=== PATIENT | female | born 1975 | race Two or more races ===

== ENCOUNTER 2024-03-16 13:29 | Emergency (ER) | payer MEDICAID, OTHER ==
[~2024-03-16] VITALS: Ht 157.5 cm; Wt 58.6 kg
[2024-03-16 16:13] LABS: Basophils # (auto) 0.1 10 ^3/uL (0-0.2); Basophils % (auto) 0.8 % (0.0-2.0); Eosinophils # (auto) 0.2 10 ^3/uL (0-0.8); Eosinophils % (auto) 3.2 % (0.0-7.0); Hematocrit 38.4 % (36.0-46.0); Hemoglobin 13.1 g/dL (12.2-16.2); Lymphocytes # (auto) 1.9 10 ^3/uL (0.4-5.4); Lymphocytes % (auto) 29.5 % (10.0-50.0); Mean Corpuscular Hemoglobin 31.3 pg (28.0-32.0); Mean Corpuscular Hgb Conc. 34.2 g/dL (32.0-36.0); Mean Corpuscular Volume 91.5 fL (80.0-100.0); Monocytes # (auto) 0.4 10 ^3/uL (0-1.3); Monocytes % (auto) 5.5 % (0.0-12.0); Platelet Count (auto) 286 10^3/uL (140-450); Red Cell Distribution Width 13.6 % (11.8-14.3); White Blood Cell 6.5 10^3/uL (4.4-10.8)
[2024-03-16 16:18] VITALS: BP 98/61; PULSE 85; RESP 17; TEMP 98.2; O2SAT 95
[2024-03-16 16:27] LABS: Chloride 105 mmol/L (98-107); Sodium 139 mmol/L (136-145)
[2024-03-16 16:28] LABS: Anion Gap 4 (5-15); Carbon Dioxide 30 mmol/L (20-31)
[2024-03-16 16:29] LABS: Calcium 9.9 mg/dL (8.7-10.4)
[2024-03-16 16:33] LABS: BUN/Creatinine Ratio 15.2 (10.0-20.0); Blood Urea Nitrogen 14 mg/dL (9-23); Glucose 98 mg/dL (74-106)
== END 2024-03-16 22:04 | disposition left against medical advice (07) ==
LOC: ER 13:29
DX: R55 Syncope and collapse (principal); R53.1 Weakness
CPT/HCPCS: 36415; 70450; 71046; 80048; 82962; 84484; 85025; 93005

== ENCOUNTER 2025-01-07 09:06 | Outpatient (CLI) | payer MEDICAID ==
[2025-01-07] MEDS ORDERED: IOHEXOL 300 MG/ML 100ML BOTTLE IJ ONE (09:19)
[2025-01-07] MEDS ORDERED: methylPREDNISolone ACETATE 80 MG/ML VL ONE (09:19)
[2025-01-07] MEDS ORDERED: BUPIVACAINE HCL 0.25% P/F 10 ML VIAL ONE (09:19)
[2025-01-07] MEDS ORDERED: LIDOCAINE 2%HCL (LOCAL ANESTH.) INJ 10ml MDV ONE (09:19)
--- NOTE | 2025-01-07 10:16 | DVH ---
PROCEDURE: Joint injection Procedural Personnel Attending physician(s): Bladimir Campos Fellow physician(s): None Resident physician(s): None Advanced practice provider(s): None Pre-procedure diagnosis: Left shoulder pain Post-procedure diagnosis: Same Indication: Pain Additional clinical history: None Complications: No immediate complications. IMPRESSION: Image-guided therapeutic left shoulder joint injection. Plan: The patient tolerated the procedure well. PROCEDURE SUMMARY: - Left shoulder joint injection with fluoroscopic guidance - Additional procedure(s): None PROCEDURE DETAILS: Pre-procedure Consent: Informed consent for the procedure including risks, benefits and alternatives was obtained a nd time-out was performed prior to the procedure. Preparation: The site was prepared and draped using maximal sterile barrier technique including cutan eous antisepsis. Anesthesia/sedation Level of anesthesia/sedation: No sedation Anesthesia/sedation administered by: Not applicable Total intra-service sedation time (minutes): Not applicable. Joint injection The patient was positioned supine. Local anesthesia was administered. Under image guidance, a needle was advanced into the joint space, with intra-articular position confirmed with arthrography. Injecti on was performed. Needle: 22 gauge, 3.5 in Contrast administered: 2 mL of Omnipaque 350 Anesthetic administered: 5 mL of 0.25% bupivacaine Medication administered: 80 mg of Depo-Medrol Findings: appropriate opacification of the joint space Closure The needle was removed and hemostasis was achieved with manual compression. A sterile bandage was kevon lied. Contrast Contrast agent: Omnipaque 350 Contrast volume (mL): 2 Radiation Dose Fluoroscopy time (minutes): 0.2 Reference air kerma (mGy): 0.4 Kerma area product (uGy-m2): 3.45 Additional Details Additional description of procedure: None Registry event: V/3/g Device used: None Equipment details: None Unique Device Identifiers: Not available Specimens removed: None Estimated blood loss (mL): Less than 10 Standardized report: [email or web address] Attestation Signer name: Bladimir Campos I attest that I was present for the entire procedure. I reviewed the stored images and agree with the report as written.
== END 2025-01-07 17:00 | disposition home or self-care (01) ==
LOC: XYW 09:06
PROVIDERS: ATTEND Orthopaedic Surgery Adult Reconstructive Orthopaedic Surgery
DX: M75.02 Adhesive capsulitis of left shoulder (principal); M25.512 Pain in left shoulder
CPT/HCPCS: 20610; 73020; 77002; J1010; J2003; J3490; Q9967